=== PATIENT | female | born 1950 | race Two or more races ===

== ENCOUNTER 2017-06-01 08:06 | Outpatient (CLI) | payer OTHER | END 2017-06-01 08:08 | disposition home or self-care (01) | LOC: NUCLEAR 08:06 | DX: I87.2 Venous insufficiency (chronic) (peripheral) (principal); I70.209 Unspecified atherosclerosis of native arteries of extremities, unspecified extremity; I73.9 Peripheral vascular disease, unspecified ==

== ENCOUNTER 2017-06-02 08:39 | Outpatient (CLI) | payer OTHER | END 2017-06-02 08:52 | disposition home or self-care (01) | LOC: NUCLEAR 08:39 | DX: I87.2 Venous insufficiency (chronic) (peripheral) (principal); I70.209 Unspecified atherosclerosis of native arteries of extremities, unspecified extremity ==

== ENCOUNTER → 2017-09-25 | Day surgery (SDC) | payer OTHER | END | disposition home or self-care (01) | LOC: ADM 09-18 13:00 → AMB-ENDOS 07:00 | DX: K29.60 Other gastritis without bleeding (principal); E66.8 Other obesity; I10 Essential (primary) hypertension; E03.8 Other specified hypothyroidism; K21.9 Gastro-esophageal reflux disease without esophagitis; K64.1 Second degree hemorrhoids ==

== ENCOUNTER 2017-11-17 07:57 | Outpatient (CLI) | payer OTHER | END 2017-11-17 09:06 | disposition home or self-care (01) | LOC: RAD 07:57 → SONOGRAMA 08:45 → RAD 08:45 | DX: Z12.31 Encounter for screening mammogram for malignant neoplasm of breast (principal); Z87.898 Personal history of other specified conditions; N60.11 Diffuse cystic mastopathy of right breast; N60.12 Diffuse cystic mastopathy of left breast; R10.2 Pelvic and perineal pain; R10.11 Right upper quadrant pain; N83.202 Unspecified ovarian cyst, left side; N83.8 Other noninflammatory disorders of ovary, fallopian tube and broad ligament; N83.201 Unspecified ovarian cyst, right side; N83.292 Other ovarian cyst, left side; N83.291 Other ovarian cyst, right side; M85.9 Disorder of bone density and structure, unspecified; E55.9 Vitamin D deficiency, unspecified; E66.8 Other obesity; M81.0 Age-related osteoporosis without current pathological fracture; R31.21 Asymptomatic microscopic hematuria; M12.852 Other specific arthropathies, not elsewhere classified, left hip; M12.851 Other specific arthropathies, not elsewhere classified, right hip; M16.0 Bilateral primary osteoarthritis of hip; M46.47 Discitis, unspecified, lumbosacral region | CPT/HCPCS: 73521; 76641; 76700; 76830; 77067; 77080; 78315; A9503 ==

== ENCOUNTER 2017-11-17 08:00 | Outpatient (CLI) | payer OTHER | END 2017-11-20 08:12 | disposition home or self-care (01) | LOC: LAB 08:00 | DX: I10 Essential (primary) hypertension (principal); E78.2 Mixed hyperlipidemia; E03.8 Other specified hypothyroidism; M81.0 Age-related osteoporosis without current pathological fracture; E11.9 Type 2 diabetes mellitus without complications; M89.9 Disorder of bone, unspecified; R31.21 Asymptomatic microscopic hematuria; E55.9 Vitamin D deficiency, unspecified; N60.12 Diffuse cystic mastopathy of left breast; N60.11 Diffuse cystic mastopathy of right breast; E66.8 Other obesity; D50.8 Other iron deficiency anemias; N30.00 Acute cystitis without hematuria; D39.8 Neoplasm of uncertain behavior of other specified female genital organs; E83.32 Hereditary vitamin D-dependent rickets (type 1) (type 2); E83.59 Other disorders of calcium metabolism ==

== ENCOUNTER 2017-11-27 15:30 | Outpatient (CLI) | payer OTHER | END 2017-11-27 15:37 | disposition home or self-care (01) | LOC: TOM 15:30 | DX: R10.84 Generalized abdominal pain (principal) | CPT/HCPCS: 74178; Q9965 ==

== ENCOUNTER → 2018-03-25 10:02 | Outpatient (CLI) | payer OTHER | END | disposition home or self-care (01) | LOC: LAB 10:02 | DX: E03.8 Other specified hypothyroidism (principal); D51.3 Other dietary vitamin B12 deficiency anemia; I10 Essential (primary) hypertension; E78.2 Mixed hyperlipidemia; E55.9 Vitamin D deficiency, unspecified; K29.70 Gastritis, unspecified, without bleeding; D50.8 Other iron deficiency anemias; D51.8 Other vitamin B12 deficiency anemias; E06.3 Autoimmune thyroiditis; R97.0 Elevated carcinoembryonic antigen [CEA]; K90.89 Other intestinal malabsorption ==

== ENCOUNTER → 2018-03-31 | Outpatient (CLI) | payer OTHER | END | disposition home or self-care (01) | LOC: NUCLEAR 09:56 | DX: I70.213 Atherosclerosis of native arteries of extremities with intermittent claudication, bilateral legs (principal) ==

== ENCOUNTER 2018-04-01 10:45 | Outpatient (CLI) | payer OTHER | END 2018-04-01 10:58 | disposition home or self-care (01) | LOC: MAMO-SONO 10:45 → SONOGRAMA 10:45 | DX: E03.8 Other specified hypothyroidism (principal); D51.3 Other dietary vitamin B12 deficiency anemia; I10 Essential (primary) hypertension; E78.2 Mixed hyperlipidemia; E55.9 Vitamin D deficiency, unspecified; K29.70 Gastritis, unspecified, without bleeding; E04.8 Other specified nontoxic goiter ==

== ENCOUNTER → 2018-04-01 | Outpatient (CLI) | payer OTHER | END | disposition home or self-care (01) | LOC: NUCLEAR 09:00 | DX: E03.8 Other specified hypothyroidism (principal); E78.2 Mixed hyperlipidemia; I10 Essential (primary) hypertension; E55.9 Vitamin D deficiency, unspecified; K29.70 Gastritis, unspecified, without bleeding; I73.9 Peripheral vascular disease, unspecified; I87.2 Venous insufficiency (chronic) (peripheral) ==

== ENCOUNTER 2018-05-26 10:18 | Outpatient (CLI) | payer OTHER | END 2018-05-26 10:55 | disposition home or self-care (01) | LOC: LAB 10:18 | DX: E78.2 Mixed hyperlipidemia (principal); N39.0 Urinary tract infection, site not specified; N28.9 Disorder of kidney and ureter, unspecified; E11.51 Type 2 diabetes mellitus with diabetic peripheral angiopathy without gangrene; E03.8 Other specified hypothyroidism; E55.9 Vitamin D deficiency, unspecified; D64.89 Other specified anemias; Z12.11 Encounter for screening for malignant neoplasm of colon; E21.3 Hyperparathyroidism, unspecified; R10.9 Unspecified abdominal pain; E11.9 Type 2 diabetes mellitus without complications; R73.09 Other abnormal glucose; I20.9 Angina pectoris, unspecified; R73.01 Impaired fasting glucose; Z13.6 Encounter for screening for cardiovascular disorders; D51.3 Other dietary vitamin B12 deficiency anemia; I10 Essential (primary) hypertension; K29.70 Gastritis, unspecified, without bleeding; D50.8 Other iron deficiency anemias; D51.8 Other vitamin B12 deficiency anemias; E06.3 Autoimmune thyroiditis; R97.0 Elevated carcinoembryonic antigen [CEA]; K90.89 Other intestinal malabsorption; E78.49 Other hyperlipidemia; E66.8 Other obesity ==

== ENCOUNTER 2018-07-01 10:49 | Outpatient (CLI) | payer OTHER | END 2018-07-01 10:51 | disposition home or self-care (01) | LOC: SONOGRAMA 10:49 | DX: E04.2 Nontoxic multinodular goiter (principal) ==

== ENCOUNTER 2018-08-02 13:07 | Outpatient (CLI) | payer OTHER | END 2018-08-02 13:12 | disposition home or self-care (01) | LOC: RAD 501 13:07 | DX: M54.2 Cervicalgia (principal); M54.5 Low back pain ==

== ENCOUNTER → 2018-10-15 08:34 | Outpatient (CLI) | payer OTHER | END | disposition home or self-care (01) | LOC: LAB 08:34 | DX: D51.1 Vitamin B12 deficiency anemia due to selective vitamin B12 malabsorption with proteinuria (principal); D51.3 Other dietary vitamin B12 deficiency anemia; K90.89 Other intestinal malabsorption; I10 Essential (primary) hypertension; E78.2 Mixed hyperlipidemia; E55.9 Vitamin D deficiency, unspecified; E03.8 Other specified hypothyroidism; K29.70 Gastritis, unspecified, without bleeding; I73.89 Other specified peripheral vascular diseases; D50.8 Other iron deficiency anemias; D51.8 Other vitamin B12 deficiency anemias ==

== ENCOUNTER 2019-04-18 09:36 | Outpatient (CLI) | payer OTHER | END 2019-04-18 15:19 | disposition home or self-care (01) | LOC: LAB 09:36 | DX: D51.1 Vitamin B12 deficiency anemia due to selective vitamin B12 malabsorption with proteinuria (principal); D51.3 Other dietary vitamin B12 deficiency anemia; K90.89 Other intestinal malabsorption; I10 Essential (primary) hypertension; E78.2 Mixed hyperlipidemia; E55.9 Vitamin D deficiency, unspecified; E03.8 Other specified hypothyroidism; K29.70 Gastritis, unspecified, without bleeding; I73.89 Other specified peripheral vascular diseases; D50.8 Other iron deficiency anemias; D51.8 Other vitamin B12 deficiency anemias ==

== ENCOUNTER 2019-04-18 11:37 | Outpatient (CLI) | payer OTHER | END 2019-04-18 11:41 | disposition home or self-care (01) | LOC: SONOGRAMA 11:37 | DX: J32.8 Other chronic sinusitis (principal); R31.21 Asymptomatic microscopic hematuria; R31.29 Other microscopic hematuria; N20.0 Calculus of kidney; E55.9 Vitamin D deficiency, unspecified; N60.11 Diffuse cystic mastopathy of right breast; N60.12 Diffuse cystic mastopathy of left breast; R92.0 Mammographic microcalcification found on diagnostic imaging of breast; E66.8 Other obesity; M89.8X8 Other specified disorders of bone, other site; D25.1 Intramural leiomyoma of uterus ==

== ENCOUNTER 2019-04-28 09:22 | Outpatient (CLI) | payer OTHER | END 2019-04-28 09:33 | disposition home or self-care (01) | LOC: NUCLEAR 09:22 | DX: I87.2 Venous insufficiency (chronic) (peripheral) (principal) ==

== ENCOUNTER 2019-10-20 13:14 | Outpatient (CLI) | payer OTHER | END 2019-10-20 13:24 | disposition home or self-care (01) | LOC: LAB 13:14 | PROVIDERS: ATTEND Surgery Pediatric Surgery | DX: E55.9 Vitamin D deficiency, unspecified (principal); Z11.1 Encounter for screening for respiratory tuberculosis ==

== ENCOUNTER 2019-10-21 08:10 | Outpatient (CLI) | payer OTHER | END 2019-10-21 08:19 | disposition home or self-care (01) | LOC: TOM 08:10 | PROVIDERS: ATTEND Surgery Pediatric Surgery | DX: K42.0 Umbilical hernia with obstruction, without gangrene (principal); K40.00 Bilateral inguinal hernia, with obstruction, without gangrene, not specified as recurrent | CPT/HCPCS: 74177; Q9965 ==

== ENCOUNTER → 2019-10-21 10:27 | Outpatient (CLI) | payer OTHER | END | disposition home or self-care (01) | LOC: LAB 10:27 | PROVIDERS: ATTEND Radiology Diagnostic Radiology | DX: N20.0 Calculus of kidney (principal) ==

== ENCOUNTER → 2019-10-25 12:07 | Outpatient (CLI) | payer OTHER | END | disposition home or self-care (01) | LOC: LAB 12:07 | PROVIDERS: ATTEND Internal Medicine Hematology & Oncology | DX: D50.8 Other iron deficiency anemias (principal); I10 Essential (primary) hypertension; E55.9 Vitamin D deficiency, unspecified; E03.8 Other specified hypothyroidism; R97.0 Elevated carcinoembryonic antigen [CEA]; R97.8 Other abnormal tumor markers; D51.1 Vitamin B12 deficiency anemia due to selective vitamin B12 malabsorption with proteinuria; D51.3 Other dietary vitamin B12 deficiency anemia; K90.89 Other intestinal malabsorption; E78.2 Mixed hyperlipidemia; K29.70 Gastritis, unspecified, without bleeding; I73.89 Other specified peripheral vascular diseases ==

== ENCOUNTER 2020-04-26 12:57 | Outpatient (CLI) | payer OTHER | END 2020-04-26 13:15 | disposition HB | LOC: RAD 12:57 | PROVIDERS: ATTEND Orthopaedic Surgery | DX: M77.31 Calcaneal spur, right foot (principal); M25.561 Pain in right knee; M25.571 Pain in right ankle and joints of right foot ==

== ENCOUNTER 2020-05-22 10:04 | Outpatient (CLI) | payer OTHER | END 2020-05-22 10:18 | disposition home or self-care (01) | LOC: LAB 10:04 | PROVIDERS: ATTEND Internal Medicine Hematology & Oncology | DX: D64.89 Other specified anemias (principal); N39.0 Urinary tract infection, site not specified; R10.84 Generalized abdominal pain; E03.8 Other specified hypothyroidism; E55.9 Vitamin D deficiency, unspecified; E11.9 Type 2 diabetes mellitus without complications; I10 Essential (primary) hypertension; D50.8 Other iron deficiency anemias; D55.0 Anemia due to glucose-6-phosphate dehydrogenase [G6PD] deficiency; M10.49 Other secondary gout, multiple sites; Z77.011 Contact with and (suspected) exposure to lead; D51.1 Vitamin B12 deficiency anemia due to selective vitamin B12 malabsorption with proteinuria; D51.3 Other dietary vitamin B12 deficiency anemia; K90.89 Other intestinal malabsorption; K29.70 Gastritis, unspecified, without bleeding; I73.89 Other specified peripheral vascular diseases ==

== ENCOUNTER 2020-05-23 10:39 | Outpatient (CLI) | payer OTHER | END 2020-05-23 10:56 | disposition home or self-care (01) | LOC: NUCLEAR 10:39 | PROVIDERS: ATTEND Specialist | DX: I73.9 Peripheral vascular disease, unspecified (principal); M79.661 Pain in right lower leg; M79.662 Pain in left lower leg ==

== ENCOUNTER 2020-05-24 10:13 | Outpatient (CLI) | payer OTHER | END 2020-05-24 11:12 | disposition home or self-care (01) | LOC: NUCLEAR 10:13 | PROVIDERS: ATTEND Specialist | DX: I65.23 Occlusion and stenosis of bilateral carotid arteries (principal) ==

== ENCOUNTER → 2020-05-25 | Outpatient (CLI) | payer OTHER | END | disposition home or self-care (01) | LOC: NUCLEAR 10:00 | PROVIDERS: ATTEND Specialist | DX: I82.493 Acute embolism and thrombosis of other specified deep vein of lower extremity, bilateral (principal); M79.661 Pain in right lower leg; M79.662 Pain in left lower leg ==

== ENCOUNTER 2020-06-12 14:43 | Outpatient (CLI) | payer OTHER | END 2020-06-12 14:44 | disposition home or self-care (01) | LOC: LAB 14:43 | PROVIDERS: ATTEND Internal Medicine Hematology & Oncology | DX: D50.8 Other iron deficiency anemias (principal); K29.60 Other gastritis without bleeding; I10 Essential (primary) hypertension; D55.0 Anemia due to glucose-6-phosphate dehydrogenase [G6PD] deficiency; M10.9 Gout, unspecified; D51.1 Vitamin B12 deficiency anemia due to selective vitamin B12 malabsorption with proteinuria; D51.3 Other dietary vitamin B12 deficiency anemia; K90.89 Other intestinal malabsorption; E55.9 Vitamin D deficiency, unspecified; E03.8 Other specified hypothyroidism; Z77.011 Contact with and (suspected) exposure to lead; I73.89 Other specified peripheral vascular diseases ==

== ENCOUNTER 2020-06-25 08:31 | Outpatient (CLI) | payer OTHER | END 2020-06-25 08:41 | disposition home or self-care (01) | LOC: RAD 08:31 | PROVIDERS: ATTEND Internal Medicine Gastroenterology | DX: D50.8 Other iron deficiency anemias (principal) ==

== ENCOUNTER 2020-10-13 11:40 | Outpatient (CLI) | payer OTHER | END 2020-10-13 15:00 | disposition home or self-care (01) | LOC: LAB 11:40 → OFIC 805 10-15 11:45 | PROVIDERS: ATTEND Orthopaedic Surgery | DX: E21.3 Hyperparathyroidism, unspecified (principal); M81.8 Other osteoporosis without current pathological fracture; E56.1 Deficiency of vitamin K ==

== ENCOUNTER 2020-12-18 09:35 | Outpatient (CLI) | payer OTHER | END 2020-12-18 09:51 | disposition home or self-care (01) | LOC: TOM 09:35 | DX: R22.0 Localized swelling, mass and lump, head (principal); E04.1 Nontoxic single thyroid nodule; E07.89 Other specified disorders of thyroid; R22.2 Localized swelling, mass and lump, trunk ==

== ENCOUNTER → 2022-04-24 | Outpatient (CLI) | payer OTHER ==
[~2022-04-24] MED LIST: ATORVASTATIN CA20 MG PO; KETO10TA2 PO; LEVOTHYROXINE50 MCG PO; METOPROLOL SUCC25 MG PO; PANTOPRAZOLE SO40 MG PO
== END | disposition home or self-care (01) ==
LOC: NUCLEAR 08:13
PROVIDERS: ATTEND Obstetrics & Gynecology Gynecology
DX: M81.0 Age-related osteoporosis without current pathological fracture (principal); M89.9 Disorder of bone, unspecified; M85.9 Disorder of bone density and structure, unspecified

== ENCOUNTER → 2022-04-24 | Outpatient (CLI) | payer OTHER | END | disposition home or self-care (01) | LOC: MAMO-SONO 07:59 | PROVIDERS: ATTEND Obstetrics & Gynecology Gynecology | DX: N60.11 Diffuse cystic mastopathy of right breast (principal); N60.12 Diffuse cystic mastopathy of left breast; R31.21 Asymptomatic microscopic hematuria; R97.8 Other abnormal tumor markers; R31.9 Hematuria, unspecified; N20.0 Calculus of kidney; R10.2 Pelvic and perineal pain; R10.11 Right upper quadrant pain; N83.209 Unspecified ovarian cyst, unspecified side; N83.292 Other ovarian cyst, left side; N83.291 Other ovarian cyst, right side ==

== ENCOUNTER 2022-10-30 08:46 | Outpatient (CLI) | payer OTHER | END 2022-10-30 09:00 | disposition home or self-care (01) | LOC: SONOGRAMA 08:46 | PROVIDERS: ATTEND Pathology Anatomic Pathology & Clinical Pathology | DX: D34 Benign neoplasm of thyroid gland (principal); E04.9 Nontoxic goiter, unspecified ==

== ENCOUNTER 2023-06-09 10:54 | Outpatient (CLI) | payer OTHER | END 2023-06-09 11:10 | disposition home or self-care (01) | LOC: RAD 10:54 | PROVIDERS: ATTEND Specialist | DX: R10.9 Unspecified abdominal pain (principal); S83.206A Unspecified tear of unspecified meniscus, current injury, right knee, initial encounter | CPT/HCPCS: 73721 ==

== ENCOUNTER 2023-06-09 12:06 | Outpatient (CLI) | payer OTHER | END 2023-06-09 12:19 | disposition home or self-care (01) | LOC: MAMO-SONO 12:06 | PROVIDERS: ATTEND Obstetrics & Gynecology Gynecology | DX: N60.11 Diffuse cystic mastopathy of right breast (principal); N60.12 Diffuse cystic mastopathy of left breast; R92.0 Mammographic microcalcification found on diagnostic imaging of breast; N63.0 Unspecified lump in unspecified breast; R92.1 Mammographic calcification found on diagnostic imaging of breast; E66.9 Obesity, unspecified; M89.9 Disorder of bone, unspecified; R31.21 Asymptomatic microscopic hematuria; D25.1 Intramural leiomyoma of uterus; A63.0 Anogenital (venereal) warts; R10.2 Pelvic and perineal pain; R10.11 Right upper quadrant pain; R31.9 Hematuria, unspecified; N20.0 Calculus of kidney; N83.209 Unspecified ovarian cyst, unspecified side; N83.53 Torsion of ovary, ovarian pedicle and fallopian tube; Z12.31 Encounter for screening mammogram for malignant neoplasm of breast ==

== ENCOUNTER 2023-07-29 08:24 | Outpatient (CLI) | payer OTHER | END 2023-07-29 08:31 | disposition home or self-care (01) | LOC: SONOGRAMA 08:24 | PROVIDERS: ATTEND Obstetrics & Gynecology Gynecology | DX: N84.0 Polyp of corpus uteri (principal); N60.11 Diffuse cystic mastopathy of right breast; N60.12 Diffuse cystic mastopathy of left breast; R92.0 Mammographic microcalcification found on diagnostic imaging of breast; N63.0 Unspecified lump in unspecified breast; R92.1 Mammographic calcification found on diagnostic imaging of breast; E66.9 Obesity, unspecified; M89.9 Disorder of bone, unspecified; R31.21 Asymptomatic microscopic hematuria; D25.1 Intramural leiomyoma of uterus; A63.0 Anogenital (venereal) warts | CPT/HCPCS: 76831; Q9965 ==

== ENCOUNTER 2025-02-09 07:31 | Outpatient (CLI) | payer OTHER | END 2025-02-09 07:34 | disposition home or self-care (01) | LOC: MAMO-SONO 07:31 | PROVIDERS: ATTEND Obstetrics & Gynecology Gynecology | DX: N60.11 Diffuse cystic mastopathy of right breast (principal); N60.12 Diffuse cystic mastopathy of left breast; R92.0 Mammographic microcalcification found on diagnostic imaging of breast; N63.0 Unspecified lump in unspecified breast; R92.1 Mammographic calcification found on diagnostic imaging of breast; E66.9 Obesity, unspecified; M89.9 Disorder of bone, unspecified; R31.21 Asymptomatic microscopic hematuria; D25.1 Intramural leiomyoma of uterus; N85.00 Endometrial hyperplasia, unspecified; N76.2 Acute vulvitis; A63.0 Anogenital (venereal) warts; N60.19 Diffuse cystic mastopathy of unspecified breast; R10.20 Pelvic and perineal pain unspecified side; R10.9 Unspecified abdominal pain; N83.209 Unspecified ovarian cyst, unspecified side; N83.292 Other ovarian cyst, left side; N83.291 Other ovarian cyst, right side; M85.9 Disorder of bone density and structure, unspecified; M81.0 Age-related osteoporosis without current pathological fracture; Z12.31 Encounter for screening mammogram for malignant neoplasm of breast ==

== ENCOUNTER 2025-02-09 10:05 | Outpatient (CLI) | payer OTHER | END 2025-02-09 10:06 | disposition home or self-care (01) | LOC: NUCLEAR 10:05 | PROVIDERS: ATTEND Obstetrics & Gynecology Gynecology | DX: M81.0 Age-related osteoporosis without current pathological fracture (principal) ==